=== PATIENT | male | born 1980 | race African-American/Black ===

== ENCOUNTER 2019-11-16 03:58 | Emergency (ER) | payer SELFPAY ==
[~2019-11-16] VITALS: Ht 177.8 cm; Wt 71.9 kg
[2019-11-16] MEDS ORDERED: SODIUM CHLORIDE 0.9% 100 ML ONE (04:24)
[2019-11-16] MEDS ORDERED: IOVERSOL 350 MG/ML 100 ML VIAL ONE (04:24)
[2019-11-16] MEDS ORDERED: LOPERAMIDE HCL 2 MG CAPSULE PO ONE (04:30)
[2019-11-16] MEDS ORDERED: MORPHINE SULFATE 4 MG/ML SYRINGE IVP ONE (04:30)
[2019-11-16] MEDS ORDERED: SODIUM CHLORIDE 0.9% 1,000 ML IV ONE (04:30)
[2019-11-16 04:46] LABS: ANION GAP 12 mmol/L (8-16); CALCIUM, TOTAL 8.4 mg/dL (8.8-10.5); CARBON DIOXIDE 26 mmol/L (22-29); CHLORIDE 102 mmol/L (98-107); CREATININE 0.97 mg/dL (0.60-1.30); GLOMERULAR FILTR. RATE CALC > 60 mL/min (>60); GLUCOSE,RANDOM 97 mg/dL (70-110); POTASSIUM 4.2 mmol/L (3.5-5.1); SODIUM SERUM 140 mmol/L (136-145); UREA NITROGEN, BLOOD 10 mg/dL (7-18)
[2019-11-16 04:47] LABS: BASOPHILS % (AUTO) 1.3 % (0.0-2.0); EOSINOPHILS % (AUTO) 3.4 % (1.0-6.0); HEMATOCRIT 39.8 % (41-53); HEMOGLOBIN 13.1 g/dL (13.5-17.5); LYMPHOCYTES # (AUTO) 1.2 K/uL (1.0-4.8); LYMPHOCYTES % (AUTO) 39.9 % (22.0-44.0); MEAN CORPUSCULAR VOLUME 94 fL (80-100); MONOCYTES # (AUTO) 0.3 K/uL (0.1-1.0); MONOCYTES % (AUTO) 8.3 % (2.0-9.0); NEUTROPHILS # (AUTO) 1.4 K/uL (1.8-7.7); NEUTROPHILS % (AUTO) 47.1 % (40.0-70.0); PLATELET COUNT (AUTO) 256 K/uL (150-450); RED BLOOD CELL COUNT(AUTO) 4.24 MIL/uL (4.50-5.90); RED CELL DISTRIBUTION WIDTH 14.1 % (11.5-14.5)
[2019-11-16 04:52] LABS: ALANINE AMINOTRANSFERASE 23 U/L (12-78); ALBUMIN 3.9 g/dL (3.4-5.0); ALKALINE PHOSPHATASE 92 U/L (46-116); ASPARTATE AMINOTRANSFERASE 46 U/L (15-37); BILIRUBIN,TOTAL 0.3 mg/dL (0.1-1.0); LIPASE 150 U/L (73-393); TOTAL PROTEIN, SERUM 7.3 g/dL (6.4-8.2)
[2019-11-16 04:59] LABS: PROTHROMBIN TIME 10.6 SEC (9.4-11.6)
[2019-11-16 05:36] LABS: COVID AG,FIA SOURCE NASOPHARYNGEAL
[2019-11-16 06:15] VITALS: BP 124/71
== END 2019-11-16 06:29 | disposition home or self-care (01) ==
LOC: EMS 03:58
DX: R19.7 Diarrhea, unspecified (principal); R10.13 Epigastric pain; R10.12 Left upper quadrant pain; Z20.828 Contact with and (suspected) exposure to other viral communicable diseases
CPT/HCPCS: 36415; 74177; 80053; 83690; 85025; 85610; 87426; 96361; 96374; 99285; J2270; J7030; J7050; Q9967